=== PATIENT | female | born 1965 | race Caucasian/White ===

== ENCOUNTER 2020-03-06 13:32 | Emergency (ER) | payer BC ==
--- NOTE | 2020-03-06 13:45 | ED.PDOC ---
History of Present Illness - General Chief Complaint: Upper Extremity Injury Stated Complaint: s/p fall,right wrist and elbow pain Time Seen by Provider: 03/06/20 13:40 Source: patient Exam Limitations: no limitations - History of Present Illness Initial Comments: Is a 54-year-old female who presents with right arm and right rib injuries. States just prior to arrival she was walking over her sidewalk and tripped falling forward and landed on her right side. She denies hitting her head, loss of consciousness, neck pain, back pain, nausea, vomiting or vision changes. Reports pain to her right lateral ribs, right elbow and right wrist. Has pain with palpation or movement at the right elbow. Has been ambulatory without difficulty and denies any other injuries. She declines any pain medication at this time. Allergies/Adverse Reactions: Allergies NO KNOWN ALLERGY Allergy (Verified 03/06/20 13:39) Home Medications: Ambulatory Orders HYDROcodone 7.5MG/APAP 325MG [[place] 7.5/325] 1 tablet PO Q6H PRN #20 tab 03/06/20 Review of Systems - Review of Systems Constitutional: Denies: chills, fever EENTM: Denies: blurred vision, double vision Respiratory: Denies: cough, short of breath Cardiology: Denies: chest pain, palpitations, syncope Gastrointestinal/Abdominal: Denies: abdominal pain, nausea, vomiting Genitourinary: States: no symptoms reported Musculoskeletal: States: other - right elbow and wrist pain. Denies: back pain, neck pain Skin: States: no symptoms reported All other Systems: Reviewed and Negative Past Medical History (General) - Patient Medical History Hx Stroke: No Hx Congestive Heart Failure: No Hx Diabetes: No Surgical History: Hysterectomy - Vaccination History Hx Influenza Vaccination: Yes Hx Pneumococcal Vaccination: Yes - Social History Hx Tobacco Use: Yes Family Medical History - Family History Mother Family History: Unknown Living Status: Unknown Physical Exam - Physical Exam General Appearance: Alert, Comfortable, No apparent distress Eye Exam: bilateral other - PERRL Neck: non-tender, full range of motion, supple, other - No vertebral tenderness to neck or back Respiratory: chest non-tender, lungs clear, normal breath sounds, no respiratory distress, no accessory muscle use Cardiovascular/Chest: normal peripheral pulses, regular rate, rhythm, no murmur Gastrointestinal/Abdominal: non tender, soft, no pulsatile mass Back Exam: no vertebral tenderness Extremity: other - No right shoulder or clavicle tenderness. Mild tender to palpation to the right lateral ribs. She is tender to palpation diffusely to the right elbow and dorsal right wrist. No hand or finger tenderness. 2+ radial pulse. Cap refill is less than 2 seconds in all digits. 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 Livingston. Patient is a 54-year-old right-handed female who tripped over the sidewalk and fell onto a flexed right arm. Denies hitting her head, loss of consciousness, headache, nausea neck pain or back pain. Imaging shows no rib, wrist or hand fractures. She does have a proximal ulna fracture with no dislocation. She is neurovascularly intact. I have discussed with patient will place splint and sling and have her follow-up with an orthopedic surgeon in 3 to 5 days for continued evaluation. Patient has refused any pain medication in the ED because she wants to drive home, but will treated with narcotic pain medication at home. 03/06/20 14:38 Pt request motrin here prior to splint placement 03/06/20 14:43 Dr. Livingston agrees with double sugar tong splint and will see in clinic - Results/Orders Results/Orders: Right elbow xray EXAM DESCRIPTION: Elbow,Right 2 Views CLINICAL HISTORY: trauma COMPARISON: None Available. TECHNIQUE: AP, Lateral, and Oblique FINDINGS: Three-view x-ray right elbow shows fractured proximal ulna with fracture line extending to the elbow joint. Lateral view suggests mild comminution. Radial head and capitellum appear normally aligned. Positive elbow joint hemarthrosis with displacement of distal humeral fat pads. There is no underlying lytic bone lesion. There is no radiopaque foreign body. IMPRESSION: Comminuted fracture of the proximal ulna with fracture line extending to the elbow joint. right wrist xray EXAM DESCRIPTION: Wrist x-ray,Right 2 Views CLINICAL HISTORY: 54 years, Female, trauma COMPARISON: None FINDINGS: Right wrist 2 x-ray views is negative for fracture or dislocation. Carpal relationships are well-maintained. Distal radius and ulna appear intact. Normal metacarpals. No significant arthritic changes are observed. IMPRESSION: Negative for fracture or dislocation. right rib series EXAM DESCRIPTION: Ribs,Right 3 Views CLINICAL HISTORY: 54 years Female, trauma COMPARISON: None. FINDINGS: Right ribs 3 x-ray views. No fracture. No bony destructive lesion. Heart is prominent. No consolidating infiltrate. Bones are osteopenic. Rightward curvature of the mid T-spine with leftward curvature of the lower thoracic and lumbar and lumbar spine. IMPRESSION: Right rib x-rays negative for fracture. Departure - Departure Clinical Impression: Fracture of right proximal ulna Qualifiers: Encounter type: initial encounter Fracture type: closed Fracture morphology: other fracture Qualified Code(s): S52.091A - Other fracture of upper end of right ulna, initial encounter for closed fracture Contusion of rib on right side Qualifiers: Encounter type: initial encounter Qualified Code(s): S20.211A - Contusion of right front wall of thorax, initial encounter Right wrist sprain Qualifiers: Encounter type: initial encounter Qualified Code(s): S63.501A - Unspecified sprain of right wrist, initial encounter Time of Disposition: 14:39 Disposition: Discharge to Home or Self Care Condition: Fair Departure Forms: ED Discharge - Pt. Copy, Patient Portal Self Enrollment Instructions: DI for Arm Pain, Elbow Fracture (DC) Diet: resume usual diet Activity: other - Keep splint in place. No use of right arm Referrals: Jaswant Bowman MD [Primary Care Provider] - 1-2 Weeks Nico Livingston MD [Active Staff] - 1-5 Days Prescriptions: HYDROcodone 7.5MG/APAP 325MG [[place] 7.5/325] 1 tablet PO Q6H PRN #20 tab PRN Reason: Pain Home Medications: Ambulatory Orders HYDROcodone 7.5MG/APAP 325MG [[place] 7.5/325] 1 tablet PO Q6H PRN #20 tab 03/06/20
--- NOTE | 2020-03-06 14:19 | RAD ---
EXAM DESCRIPTION: Elbow,Right 2 Views CLINICAL HISTORY: trauma COMPARISON: None Available. TECHNIQUE: AP, Lateral, and Oblique FINDINGS: Three-view x-ray right elbow shows fractured proximal ulna with fracture line extending to the elbow joint. Lateral view suggests mild comminution. Radial head and capitellum appear normally aligned. Positive elbow joint hemarthrosis with displacement of distal humeral fat pads. There is no underlying lytic bone lesion. There is no radiopaque foreign body. IMPRESSION: Comminuted fracture of the proximal ulna with fracture line extending to the elbow joint. Electronically signed by: Deangelo Gomez MD 03/06/2020 2:17 PM CDT
--- NOTE | 2020-03-06 14:22 | RAD ---
EXAM DESCRIPTION: Ribs,Right 3 Views CLINICAL HISTORY: 54 years Female, trauma COMPARISON: None. FINDINGS: Right ribs 3 x-ray views. No fracture. No bony destructive lesion. Heart is prominent. No consolidating infiltrate. Bones are osteopenic. Rightward curvature of the mid T-spine with leftward curvature of the lower thoracic and lumbar and lumbar spine. IMPRESSION: Right rib x-rays negative for fracture. Electronically signed by: Deangelo Gomez MD 03/06/2020 2:19 PM CDT
--- NOTE | 2020-03-06 14:23 | RAD ---
EXAM DESCRIPTION: Wrist x-ray,Right 2 Views CLINICAL HISTORY: 54 years, Female, trauma COMPARISON: None FINDINGS: Right wrist 2 x-ray views is negative for fracture or dislocation. Carpal relationships are well-maintained. Distal radius and ulna appear intact. Normal metacarpals. No significant arthritic changes are observed. IMPRESSION: Negative for fracture or dislocation. Electronically signed by: Deangelo Gomez MD 03/06/2020 2:20 PM CDT
[2020-03-06] MEDS ORDERED: IBUPROFEN 200 MG TAB PO ONE (14:38)
[2020-03-06 15:11] VITALS: BP 153/73; TEMP 96.7; O2SAT 96
== END 2020-03-06 15:11 | disposition home or self-care (01) ==
LOC: ER 13:32
DX: S52.091A Other fracture of upper end of right ulna, initial encounter for closed fracture (principal); S20.211A Contusion of right front wall of thorax, initial encounter; S63.501A Unspecified sprain of right wrist, initial encounter; Z87.891 Personal history of nicotine dependence; W01.0XXA Fall on same level from slipping, tripping and stumbling without subsequent striking against object, initial encounter; Y92.9 Unspecified place or not applicable

== ENCOUNTER → 2020-03-12 | Outpatient (CLI) | payer BC ==
--- NOTE | 2020-03-12 16:30 | RAD ---
EXAM DESCRIPTION: Elbow,Right 3 Views CLINICAL HISTORY: 55 years Female, PAIN IN RIGHT ELBOW COMPARISON: March 06, 2020 Findings: 3 view(s)/radiograph(s) Unchanged alignment of the comminuted intra-articular olecranon fracture. No interval healing. Large joint effusion. Similar soft tissue swelling in the right elbow. Minimally displaced transverse distal humeral condyle fracture. IMPRESSION: Unchanged alignment of the transverse right olecranon fracture. Minimally displaced transverse distal humeral condyle fracture. Electronically signed by: Juan Carlos Leon MD 03/12/2020 4:28 PM CDT
== END ==
LOC: RAD 08:09
PROVIDERS: ATTEND Orthopaedic Surgery
DX: S52.021D Displaced fracture of olecranon process without intraarticular extension of right ulna, subsequent encounter for closed fracture with routine healing (principal); S42.451D Displaced fracture of lateral condyle of right humerus, subsequent encounter for fracture with routine healing

== ENCOUNTER → 2020-03-13 | Outpatient (CLI) | payer BC ==
--- NOTE | 2020-03-16 07:50 | CT ---
EXAM DESCRIPTION: Chest w/o Contrast CLINICAL HISTORY: DYSPNEA COMPARISON: None available TECHNIQUE: Chest CT was performed without IV contrast. This exam was performed according to our departmental dose-optimization program, which includes automated exposure control, adjustment of the mA and/or kV according to patient size and/or use of iterative reconstruction technique. FINDINGS: The thyroid and thoracic inlet are unremarkable. No thoracic aortic aneurysm. No esophageal wall thickening. No pleural or pericardial effusion. The main pulmonary artery is not dilated. Limited sensitivity for detection of adenopathy due to lack of IV contrast, no mediastinal or hilar adenopathy is seen. The central airways are clear. Platelike atelectasis in the left lung base. Small foci of groundglass density also in both lung bases. No additional airspace consolidation. Included portions of the upper abdomen are unremarkable for noncontrast technique. No axillary adenopathy. Degenerative changes in the thoracic spine at several levels, no fracture or pneumothorax. IMPRESSION: Small foci of groundglass density in both lungs with platelike atelectasis in the left lung base, less likely additional consolidation. Findings are nonspecific, but the possibility of pneumonia including Covid 19 pneumonia should be considered. Electronically signed by: Macario Glynn MD 03/16/2020 7:48 AM CDT
--- NOTE | 2020-03-16 10:34 | CT ---
EXAM DESCRIPTION: Upper Extremity CLINICAL HISTORY: FRACTURE OF OLECRANON, RIGHT COMPARISON: Elbow radiograph 03/12/2020. TECHNIQUE: Extremity CT of the right elbow is performed with thin-section axial imaging. MPRs are created and reviewed as well. 3-dimensional reconstructions created on a dedicated workstation were created and are also maintained in the patient's medical record. FINDINGS: Redemonstration of an acute, moderately comminuted, mildly impacted intra-articular fracture of the capitellum with extension to the lateral condylar and supracondylar region. Small nondisplaced fracture along the lateral aspect of the radial head (series 300, image 32). No elbow joint dislocation. Additional comminuted intra-articular fracture of the proximal posterior olecranon with fracture gap/distraction by approximately 1.2 cm. The proximal olecranon fracture fragment measures 1.6 cm. A nondisplaced fracture of the lateral trochlea (series 300 image 29) is noted. Moderate sized elbow joint effusion. Surrounding soft tissue contusion and edema is present. No organized hematoma. IMPRESSION: 1. Right capitellum impacted, moderately comminuted intra-articular fracture extending into the supracondylar region. 2. Posterior olecranon mildly displaced/distracted fracture. 3. Small nondisplaced fractures of the radial head and humeral trochlea. 4. Moderate sized elbow joint effusion and surrounding soft tissue contusion. This exam was performed according to our departmental dose-optimization program, which includes automated exposure control, adjustment of the mA and/or kV according to patient size and/or use of iterative reconstruction technique. Electronically signed by: Lazaro Kang DO 03/16/2020 10:32 AM CDT
== END ==
LOC: CT 09:47
PROVIDERS: ATTEND Orthopaedic Surgery
DX: S52.031D Displaced fracture of olecranon process with intraarticular extension of right ulna, subsequent encounter for closed fracture with routine healing (principal); S42.451D Displaced fracture of lateral condyle of right humerus, subsequent encounter for fracture with routine healing; S52.121D Displaced fracture of head of right radius, subsequent encounter for closed fracture with routine healing; M25.421 Effusion, right elbow; S50.01XD Contusion of right elbow, subsequent encounter; R91.8 Other nonspecific abnormal finding of lung field; J98.11 Atelectasis

== ENCOUNTER → 2020-06-01 | Outpatient (CLI) | payer BC ==
--- NOTE | 2020-06-02 07:59 | MRI ---
Study: MRI of the Right Shoulder. Indication: M75.100 Technique: Multiplanar, multi sequence MRI of the right shoulder was obtained with and without intravenous contrast. Comparison: None. Findings: Moderate hypertrophic AC joint osteoarthritis. Type I acromion with mild lateral downsloping. High-grade supraspinatus and infraspinatus tendinosis with low to intermediate grade interstitial tearing suspected throughout the supraspinatus tendon insertion. No full-thickness tear or tendon retraction. Subscapularis tendinosis and attenuation. Mild atrophy and grade 1 fatty infiltration rotator cuff musculature. Long head biceps tendinosis without rupture. Circumferential labral truncation and degeneration. Mild glenohumeral joint osteoarthritis with a small joint effusion. No acute fracture. Edema and poor definition inferior glenohumeral ligament which can indicate capsulitis or a sprain/partial tear. No complete rupture. Patchy marrow edema throughout the humeral head and neck. No abnormal pathologic enhancing lesion. Impression: High-grade supraspinatus and infraspinatus tendinosis with intermediate grade interstitial tearing throughout the supraspinatus tendon insertion. Subscapularis tendinosis and attenuation. Mild atrophy and grade 1 fatty infiltration rotator cuff musculature. Long head biceps tendinosis. Mild glenohumeral joint osteoarthritis with circumferential labral degeneration and a small joint effusion. Sprain/partial tear inferior glenohumeral ligament versus adhesive capsulitis. Moderate hypertrophic AC joint osteoarthritis. Patchy marrow edema humeral head and neck. No fracture. Electronically signed by: Isak Elliott MD 06/02/2020 7:57 AM [facility]
== END ==
LOC: MRI 13:05
PROVIDERS: ATTEND Family Medicine
DX: Z01.812 Encounter for preprocedural laboratory examination (principal); M75.101 Unspecified rotator cuff tear or rupture of right shoulder, not specified as traumatic; S43.431A Superior glenoid labrum lesion of right shoulder, initial encounter; M62.511 Muscle wasting and atrophy, not elsewhere classified, right shoulder; M75.21 Bicipital tendinitis, right shoulder; M19.011 Primary osteoarthritis, right shoulder; R60.0 Localized edema; M77.9 Enthesopathy, unspecified